=== PATIENT | female | born 1975 | race Caucasian/White ===

== ENCOUNTER 2024-08-05 18:33 | Emergency (ER) | payer MEDICAID, OTHER ==
[~2024-08-05] VITALS: Ht 162.6 cm; Wt 90.0 kg
[~2024-08-05 18:33] MED LIST: LEVE500V; SEE MED LIST; [UNRECOGNIZED DRUG - OTHER]
[2024-08-05 19:48] VITALS: TEMP 98.5; O2SAT 99
[2024-08-05 21:15] VITALS: BP 122/100; PULSE 99; RESP 18
[2024-08-05] MEDS: KETOROLAC 30MG/ML VIAL IM ONE (21:15)
[2024-08-05 22:28] LABS: CLARITY URINE CLOUDY (CLEAR); COLOR URINE YELLOW (YELLOW); GLUCOSE URINE NEGATIVE (NEGATIVE); KETONES URINE NEGATIVE (NEGATIVE); LEUKOCYTE ESTERASE URINE NEGATIVE (NEGATIVE); NITRITE URINE NEGATIVE (NEGATIVE); OCCULT BLOOD URINE NEGATIVE (NEGATIVE); PH URINE 5.5 (4.5-8.0); PROTEIN URINE NEGATIVE (NEGATIVE); SPECIFIC GRAVITY URINE 1.027 (1.005-1.030); UROBILINOGEN URINE 0.2 E.U./dL (0.2-1.0)
[2024-08-05 22:53] LABS: BACTERIA URINE NONE SEEN; CALCIUM OXALATE CRYSTALS URINE 2+ /lpf; RBC URINE 0-2 /hpf (0-2); SQUAMOUS EPITHELIAL CELL URINE RARE /lpf (RARE/1+); WBC URINE NONE SEEN /hpf (0-2)
[2024-08-05] MEDS ORDERED: TAMS-11 MT (23:20)
[2024-08-05] MEDS ORDERED: IBUP-2030 MT (23:20)
[2024-08-05] MEDS ORDERED: KETOROLAC 30MG/ML VIAL IM NR (23:45)
== END 2024-08-05 23:45 | disposition home or self-care (01) ==
LOC: ER 18:33
DX: N20.0 Calculus of kidney (principal); K50.90 Crohn's disease, unspecified, without complications; I48.91 Unspecified atrial fibrillation; J45.909 Unspecified asthma, uncomplicated; Z90.49 Acquired absence of other specified parts of digestive tract; Z87.442 Personal history of urinary calculi; Z85.850 Personal history of malignant neoplasm of thyroid; Z98.890 Other specified postprocedural states; Z79.899 Other long term (current) drug therapy; Z88.0 Allergy status to penicillin; Z88.8 Allergy status to other drugs, medicaments and biological substances
CPT/HCPCS: 99284; 74176; 81003; 81025; J1885